=== PATIENT | male | born 1985 | race Caucasian/White ===

== ENCOUNTER 2024-10-07 20:51 | Inpatient (IN) | payer BC ==
[~2024-10-07] VITALS: Ht 172.7 cm; Wt 86.2 kg
[2024-10-07 22:02] LABS: HEMATOCRIT. 47.6 % (42.0-52.0); HEMOGLOBIN. 15.5 g/dL (14.0-18.0); MEAN CORPUSCULAR HEMOGLOBIN 28.1 pg (28.0-32.0); MEAN CORPUSCULAR HGB CONC 32.6 g/dL (31.0-37.0); MEAN CORPUSCULAR VOLUME 86.3 fL (80.0-94.0); MEAN PLATELET VOLUME 8.9 fl (7.4-10.4); PLATELET 202 x1000/uL (130-400); RED BLOOD CELL COUNT 5.52 mill/uL (4.7-6.1); RED CELL DISTRIBUTION WIDTH 13.6 % (11.6-14.6); WHITE BLOOD COUNT 11.2 x1000/uL (4.5-11.0)
[2024-10-07 22:04] LABS: DIFFERENTIAL COMMENT 1
[2024-10-07 22:12] LABS: CHLORIDE 104 mEq/L (98-107); SODIUM 139 mEq/L (136-145)
[2024-10-07] MEDS: LEVETIRACETAM 1000MG PREMIX 100 ML IV ONE (22:12)
[2024-10-07 22:13] LABS: CARBON DIOXIDE 29 mEq/L (21-32)
[2024-10-07 22:14] LABS: CALCIUM 9.5 mg/dL (8.7-10.4)
[2024-10-07 22:18] LABS: GLUCOSE 122 mg/dL (70-105); UREA NITROGEN BLOOD 19 mg/dL (9-23)
[2024-10-07 22:30] LABS: PLATELET ESTIMATE NORMAL
[2024-10-07 23:18] LABS: ETHANOL BLOOD < 10 mg/dL (<10)
[2024-10-07 23:39] LABS: TROPONIN I HIGH SENSITIVITY < 4 ng/L (3.0-53)
[2024-10-08 00:42] LABS: TROPONIN I HIGH SENSITIVITY < 4 ng/L (3.0-53)
[2024-10-08 02:30] VITALS: BP 110/71; PULSE 78; RESP 18; TEMP 36.2
[2024-10-08 02:33] VITALS: BP 110/71; PULSE 78; RESP 20; TEMP 36.2; O2SAT 98
[2024-10-08] MEDS ORDERED: FREM225A SUBCUT (02:47)
[2024-10-08 04:00] VITALS: BP 108/69; PULSE 75; RESP 20; TEMP 36.3; O2SAT 100
[2024-10-08] MEDS ORDERED: ACETAMINOPHEN 325MG TABLET PO PRN ×3 (04:45→09:45)
[2024-10-08] MEDS: LEVETIRACETAM 500MG PREMIX 100 ML IV SCH (05:29)
[2024-10-08 08:00] VITALS: BP_SYST 110; BP_SYST 117; BP_DIAS 78; BP_DIAS 80; PULSE 71; PULSE 73; RESP 18; TEMP 36.2; TEMP 36.4; O2SAT 95
[2024-10-08 08:58] LABS: *AMPHETAMINES SCREEN URINE NEGATIVE (NEGATIVE); *BARBITURATES SCREEN URINE NEGATIVE (NEGATIVE); *BENZODIAZEPINES SCREEN URINE NEGATIVE (NEGATIVE); *COCAINE SCREEN URINE NEGATIVE (NEGATIVE)
[2024-10-08 08:59] LABS: CANNABINOID URINE SCREEN NEGATIVE (NEGATIVE); ECSTASY MDMA SCREEN URINE NEGATIVE (NEGATIVE); METHADONE URINE SCREEN NEGATIVE (NEGATIVE); OPIATES URINE SCREEN NEGATIVE (NEGATIVE); PHENCYCLIDINE URINE SCREEN NEGATIVE (NEGATIVE)
[2024-10-08] MEDS ORDERED: LEVETIRACETAM 500MG in NACL 100ML PREMIX IV SCH (09:00)
[2024-10-08] MEDS ORDERED: MAGNESIUM/ALUMINUM HYDROXIDE/SIMETHICONE 30ML UDC PO PRN (09:45)
[2024-10-08] MEDS ORDERED: CLONIDINE 0.1MG TABLET PO PRN (09:45)
[2024-10-08] MEDS ORDERED: ONDANSETRON HCL 4MG/2ML INJ IV PRN (09:45)
[2024-10-08] MEDS ORDERED: ZOLPIDEM TARTRATE 5MG TABLET PO PRN (09:45)
[2024-10-08] MEDS ORDERED: LORAZEPAM 2MG/ML UD SYRINGE IV PRN (09:45)
[2024-10-08] MEDS: SODIUM CHLORIDE 0.9% 3ML FLUSH IVF SCH (14:23)
[2024-10-08 16:00] VITALS: BP 110/71; PULSE 70; RESP 18; TEMP 36.4; O2SAT 100
[2024-10-08] MEDS ORDERED: GADOTERATE MEGLUMINE 5 MMOL/10 ML VIAL IV ONE (17:23)
[2024-10-09] VITALS: BP 104/66; PULSE 63; RESP 18; TEMP 36.5; O2SAT 98
[2024-10-09 04:00] VITALS: BP 111/74; PULSE 68; RESP 18; TEMP 36.4; O2SAT 95
[2024-10-09] MEDS ORDERED: KEPP500 PO (09:42)
[2024-10-09 10:20] VITALS: BP 85/63; PULSE 64; TEMP 97.8; O2SAT 97
== END 2024-10-09 11:00 | disposition home or self-care (01) | DRG 101 ==
LOC: ER 20:51 → EDBEDREQTM 10-08 01:39 → EDBEDREQDT 10-08 01:39 → EDBEDREQ 10-08 01:39 → 5WST 10-08 02:14
PROVIDERS: ADMIT Internal Medicine; ATTEND Internal Medicine
DX: G40.409 Other generalized epilepsy and epileptic syndromes, not intractable, without status epilepticus (principal); G43.909 Migraine, unspecified, not intractable, without status migrainosus; R32 Unspecified urinary incontinence
CPT/HCPCS: 36415; 70553; 71045; 80048; 80305; 80320; 83605; 84484; 85025; 93005; 99291; A9577; J1953; G0480